=== PATIENT | female | born 1950 | race American Indian/Alaskan Native ===

== ENCOUNTER 2019-10-22 13:32 | Emergency (ER) | payer BC ==
--- NOTE | 2019-10-22 14:13 | Event Note ---
ED Screening Note Date of service: 10/22/19 Time: 14:01 ED Screening Note: 69 y/o female comes in for worsening swelling of her lip and tongue since Wednesday. Recent had dental work done on Wednesday. Reports mucus is getting thicker. Recinos with swallowing. This initial assessment/diagnostic orders/clinical plan/treatment(s) is/are subject to change based on patients health status, clinical progression and re- assessment by fellow clinical providers in the ED. Further treatment and workup at subsequent clinical providers discretion. Patient/guardian urged not to elope from the ED as their condition may be serious if not clinically assessed and managed. Initial orders include:
[2019-10-22] MEDS ORDERED: LIDOCAINE VISCOUS 2% 15 ML ORAL LIQD PO ONE (14:25)
[2019-10-22 14:30] VITALS: BP 123/76
--- NOTE | 2019-10-22 14:32 | Emergency Department Report ---
ED ENT HPI - General Chief complaint: Dyspnea/Respdistress Stated complaint: CARTER/SWALLOWING/LIP AND TONGUE Time Seen by Provider: 10/22/19 13:59 Source: patient Mode of arrival: Ambulatory Limitations: No Limitations - History of Present Illness Initial comments: Mrs. Vallejo is a 69-year-old female who underwent dental procedure for placement of a partial denture. She developed tongue ulceration. Her dentist prescribed clindamycin. Last night she developed ulcer on her lip. She has burning in her mouth. She has burning with swallowing. Her dentist also prescribed a mouthwash compound which is not available at retail pharmacies. MD complaint: other (Mouth burning tongue ulceration lip blister) Location: other (Mouth and throat) Severity: moderate Quality: burning Consistency: constant Improves with: none Worsens with: none - Related Data Previous Rx's Medication Instructions Recorded Last Taken Type diphenhydrAMINE HCL [Allergy 10 ml PO TID 5 Days #1 bottle 10/22/19 Unknown Rx Relief] prednisoLONE [Prednisolone] 20 ml PO DAILY 3 Days #60 solution 10/22/19 Unknown Rx Allergies Allergy/AdvReac Type Severity Reaction Status Date / Time No Known Allergies Allergy Unverified 10/22/19 13:37 ED Dental HPI - General Chief complaint: Dyspnea/Respdistress Stated complaint: CARTER/SWALLOWING/LIP AND TONGUE Time Seen by Provider: 10/22/19 13:59 Source: patient Mode of arrival: Ambulatory Limitations: No Limitations - Related Data Previous Rx's Medication Instructions Recorded Last Taken Type diphenhydrAMINE HCL [Allergy 10 ml PO TID 5 Days #1 bottle 10/22/19 Unknown Rx Relief] prednisoLONE [Prednisolone] 20 ml PO DAILY 3 Days #60 solution 10/22/19 Unknown Rx Allergies Allergy/AdvReac Type Severity Reaction Status Date / Time No Known Allergies Allergy Unverified 10/22/19 13:37 ED Review of Systems ROS: Stated complaint: CARTER/SWALLOWING/LIP AND TONGUE Other details as noted in HPI Constitutional: denies: fever, malaise ENT: throat pain Respiratory: denies: shortness of breath Skin: rash, lesions ED Past Medical Hx - Past Medical History Previous Medical History?: Yes Hx Hypertension: Yes Additional medical history: Dental work - Surgical History Past Surgical History?: Yes Additional Surgical History: Hysterectomy - Social History Smoking Status: Never Smoker Substance Use Type: None - Medications Home Medications: Home Medications Medication Instructions Recorded Confirmed Last Taken Type diphenhydrAMINE HCL [Allergy 10 ml PO TID 5 Days #1 bottle 10/22/19 Unknown Rx Relief] prednisoLONE [Prednisolone] 20 ml PO DAILY 3 Days #60 solution 10/22/19 Unknown Rx ED Physical Exam - General Limitations: No Limitations General appearance: alert, in no apparent distress - Head Head exam: Present: atraumatic, normocephalic - Eye Eye exam: Present: normal appearance - ENT ENT exam: Present: other (Discoloration ulceration of the anterior right side of the tongue measuring 1 cm x 2 cm 2 small blisters on the lip small white upper soft palate) - Neck Neck exam: Present: normal inspection, full ROM - Respiratory Respiratory exam: Absent: respiratory distress - Neurological Exam Neurological exam: Present: alert, oriented X3 - Psychiatric Psychiatric exam: Present: normal affect, normal mood - Skin Skin exam: Present: warm ED Course Vital Signs 10/22/19 14:08 Temperature 98.5 F Pulse Rate 77 Respiratory 20 Rate Blood Pressure 119/74 O2 Sat by Pulse 97 Oximetry ED Medical Decision Making - Medical Decision Making stomatitis: likely viral, given supportive treatment education Also prescribed prednisolone and liquid Benadryl. I spoke to patient's family friend who is a dentist. He was concerned for possible allergic reaction to the acrylic in the partial Critical care attestation.: If time is entered above; I have spent that time in minutes in the direct care of this critically ill patient, excluding procedure time. ED Disposition Clinical Impression: Stomatitis Disposition: [id number] TO HOME OR SELFCARE Is pt being admited?: No Does the pt Need Aspirin: No Condition: Stable Instructions: Oral Mucositis (ED) Additional Instructions: Please see your dentist tomorrow. Prescriptions: diphenhydrAMINE HCL [Allergy Relief] 10 ml PO TID 5 Days #1 bottle prednisoLONE [Prednisolone] 20 ml PO DAILY 3 Days #60 solution
== END 2019-10-22 15:23 | disposition home or self-care (01) ==
LOC: ED 13:32
DX: K12.1 Other forms of stomatitis (principal); I10 Essential (primary) hypertension; Z90.710 Acquired absence of both cervix and uterus; Z98.890 Other specified postprocedural states; Z79.899 Other long term (current) drug therapy
CPT/HCPCS: 99282